=== PATIENT | female | born 1940 | race Caucasian/White ===

== ENCOUNTER 2018-03-16 11:08 | Emergency (ER) | payer MEDICARE, MEDICAID ==
[~2018-03-16] VITALS: Ht 152.4 cm; Wt 74.8 kg
--- NOTE | 2018-03-16 11:25 | NUR ---
at bedside to examine patient.
[2018-03-16] MEDS ORDERED: ASPI-605 PO (11:39)
[2018-03-16] MEDS ORDERED: DM MED PO (11:39)
--- NOTE | 2018-03-16 11:39 | NUR ---
PT IS UNABLE TO RECALL ALL HER MEDICATIONS.
--- NOTE | 2018-03-16 11:48 | NUR ---
A call to Dr. Gale Fan message left. with call back number.
--- NOTE | 2018-03-16 11:48 | NUR ---
A call from dr. Gale hayden and on the phone with Dr. Mehta
--- NOTE | 2018-03-16 11:52 | NUR ---
[facility] faxed as requested to [phone] To Dr. Gale Fan.
--- NOTE | 2018-03-16 11:55 | NUR ---
Valentín Florentino on the phone with [facility].
[2018-03-16 12:00] LABS: BASOPHILS # (AUTO) 0.1 K/uL (0.0-8.0); BASOPHILS % (AUTO) 0.8 % (0.0-2.0); EOSINOPHILS # (AUTO) 0.1 K/uL (0.0-0.7); HEMATOCRIT 38.9 % (31.2-41.9); HEMOGLOBIN 13.5 g/dL (10.9-14.3); LYMPHOCYTES # (AUTO) 1.5 K/uL (20.0-40.0); LYMPHOCYTES % (AUTO) 21.6 % (20.5-51.5); MEAN CORPUSCULAR HEMOGLOBIN 28.1 uug (24.7-32.8); MEAN CORPUSCULAR HGB CONC 35 g/dL (32.3-35.6); MEAN CORPUSCULAR VOLUME 80.7 fL (75.5-95.3); MONOCYTES # (AUTO) 0.5 K/uL (2.0-10.0); MONOCYTES % (AUTO) 7.7 % (0.0-11.0); NEUTROPHILS # (AUTO) 4.8 K/uL (1.8-8.9); NEUTROPHILS % (AUTO) 67.9 % (38.5-71.5); PLATELET COUNT (AUTO) 205 K/uL (179-408); RED BLOOD CELL COUNT(AUTO) 4.82 MIL/uL (3.63-4.92); WHITE BLOOD COUNT (AUTO) 7.1 K/uL (3.8-11.8)
--- NOTE | 2018-03-16 12:05 | NUR ---
Patient consented for transfer to [facility].
[2018-03-16 12:09] LABS: CARBON DIOXIDE 26 mmol/L (21-32); CHLORIDE 104 mmol/L (98-107); CREATININE 0.7 mg/dL (0.6-1.3); GLUCOSE 179 mg/dL (74-106); POTASSIUM 3.9 mmol/L (3.5-5.1); UREA NITROGEN, BLOOD 18 mg/dL (7-18)
--- NOTE | 2018-03-16 12:09 | NUR ---
911 emergency services in the unit to transfer pt. to [facility] signs stable. 128/81, rr 18, 89hr.
[2018-03-16 12:11] VITALS: BP 128/82
[2018-03-16 12:21] LABS: ALANINE AMINOTRANSFERASE 27 U/L (14-59); ALKALINE PHOSPHATASE 93 U/L (50-136); ASPARTATE AMINOTRANSFERASE 27 U/L (15-37); BILIRUBIN,DIRECT 0.2 mg/dL (0.0-0.2); BILIRUBIN,TOTAL 0.4 mg/dL (0.2-1.0); TOTAL PROTEIN, SERUM 7.6 g/dL (6.4-8.2)
== END 2018-03-16 12:14 | disposition short-term general hospital (02) ==
LOC: ER 11:11
DX: I21.9 Acute myocardial infarction, unspecified (principal); I10 Essential (primary) hypertension; E11.9 Type 2 diabetes mellitus without complications; Z79.82 Long term (current) use of aspirin
CPT/HCPCS: 36415; 70030-TC; 71045; 85025; 85730; 93005; A4663